=== PATIENT | female | born 2000 | race Native Hawaiian/Other Pacific Islander ===

== ENCOUNTER 2019-11-22 20:46 | Emergency (ER) | payer OTHER ==
--- NOTE | 2019-11-22 22:20 | ED ---
Complex/Multi-Sys Presentation - HPI Summary HPI Summary: Patient is a 19 y/o F w/ bilateral breast implants who presents to [facility] for opening of right breast incision. She speaks only limited Yoruba, friend in room assists with Serbian translation. Patient was weight lifting earlier today , 11/22/19, when opening of incision occurred. She notes that she had breast implant surgery in [facility] on October 15, 2019. After the opening occurred, patient notes onset of light-headedness, MATTSON, and nausea as well. She reports pain and drainage from both breasts. Drainage from right breast is from opened incision. She states that she has had a bump at her left breast since the surgery was done. Bump is reported to have been painful. Patient began to massage her left breast today and noted drainage from her nipple. On triage, pain is rated 5/10, movement is noted to aggravate Sx. Breast implants are reported to have been placed over muscle. She states that she had follow up with her surgeon two days after the surgery was done and no other follow-up since. Hx of liposuction is reported as well. Hx of anemia endorsed as well. Allergy to penicillin is noted. FMHx of cardiac disease and diabetes reported. Home medications and allergies are reviewed. - History Of Current Complaint Chief Complaint: EDBreastComplaint Time Seen by Provider: 11/22/19 21:54 Hx Obtained From: Patient, Other: - friend Onset/Duration: Lasting Hours, Still Present Timing: Hours Severity Currently: Moderate Location: Pain At: - breasts, head Aggravating Factor(s): movement Alleviating Factor(s): nothing Associated Signs And Symptoms: Positive: Dizziness - light-headedness, Headache , Nausea, Other - positive - breast pain and drainage bilaterally, left breast bump - Allergies/Home Medications Allergies/Adverse Reactions: Allergies Allergy/AdvReac Type Severity Reaction Status Date / Time Penicillins Allergy Swelling Verified 11/22/19 20:50 paracetomol Allergy Swelling Uncoded 11/22/19 20:50 Home Medications: Home Medications Multivitamin 1 tab PO DAILY 11/22/19 [History Confirmed 11/22/19] PMH/Surg Hx/FS Hx/Imm Hx Endocrine/Hematology History: Reports: Hx Anemia Sensory History: Denies: Hx Legally Blind, Hx Deafness Opthamlomology History: Denies: Hx Legally Blind EENT History: Denies: Hx Deafness - Surgical History Surgery Procedure, Year, and Place: bilateral breast implants Oct 15, 2019. liposuction Infectious Disease History: No Infectious Disease History: Denies: Traveled Outside the [place] in Last 30 Days - Family History Known Family History: Positive: Cardiac Disease, Diabetes - Social History Alcohol Use: Rare Substance Use Type: Reports: None Smoking Status (MU): Never Smoked Tobacco Review of Systems - ROS Summary Review of Systems Summary: Home Medications Medication Instructions Recorded Confirmed Type Cephalexin CAP* [Keflex CAP*] 500 mg PO TID #30 cap 11/22/19 Rx Multivitamin 1 tab PO DAILY 11/22/19 11/22/19 History Constitutional: Other - positive - right breast incision opening, left breast lump, bilateral drainage and pain Positive: Nausea Neurological: Other - positive - light-headedness Positive: Headache All Other Systems Reviewed And Are Negative: Yes Physical Exam - Summary Physical Exam Summary: General: Well-developed, Thin-appearing female. No acute distress. HEENT: Normocephalic, Atraumatic. Eyes: Conjuctiva normal, PERRL. Oropharynx: Clear, mucous membranes moist, (-) exudates. Neck: Soft, FROM, (-) lymphadenopathy, (-) thyromegaly, (-) JVD. Cardiovascular: Normal sinus rhythm, (-) murmur. Lungs: Clear to auscultation bilaterally (-) wheezes, (-) rales, (-) rhonchi. Abdomen: Soft, non-tender, non-distended, (-) organomegaly, normal bowel sounds. Back: (-) CVA tenderness Extremities: No edema. Skin: Right breast has a 3-4 mm separation of the medial right areola tissue, no obvious drainage noted. The left breast is with mild erythema, warmth, and tenderness surrounding the areola. No fluid was expressed. Warm, dry, (-) rash. Neuro: Alert and oriented x3, no focal deficits. Psychiatric: Mildly anxious appearing. Triage Information Reviewed: Yes Vital Signs On Initial Exam: Initial Vitals Temp Pulse Resp BP Pulse Ox 98.0 F 78 18 105/76 98 11/22/19 20:51 11/22/19 20:51 11/22/19 20:51 11/22/19 20:51 11/22/19 20:51 Vital Signs Reviewed: Yes Procedures - Sedation Patient Received Moderate/Deep Sedation with Procedure: No Diagnostics - Vital Signs Vital Signs Temp Pulse Resp BP Pulse Ox 11/22/19 21:21 77 124/74 99 11/22/19 21:20 83 100 11/22/19 20:51 98.0 F 78 18 105/76 98 - Laboratory Lab Statement: Any lab studies that have been ordered have been reviewed, and results considered in the medical decision making process. Complex Multi-Symp Course/Dx Course Of Treatment: During ED course, patient received Keflex 500 mg PO. - Diagnoses Provider Diagnoses: Complication of breast implant Discharge ED - Sign-Out/Discharge Documenting (check all that apply): Patient Departure - discharge - Discharge Plan Condition: Stable Disposition: HOME Prescriptions: Cephalexin CAP* [Keflex CAP*] 500 mg PO TID #30 cap Patient Education Materials: Breast Augmentation (DC) Print Language: BELARUSIAN Referrals: [facility] [Outside] - 3 Days Additional Instructions: PLEASE RETURN TO ED FOR ANY NEW OR CONCERNING SYMPTOMS. PLEASE FOLLOW UP WITH YOUR PRIMARY CARE PHYSICIAN WITHIN THREE DAYS. - Attestation Statements Document Initiated by Scribe: Yes Documenting Scribe: ERIBERTO SMALL Provider For Whom Scribe is Documenting (Include Credential): CYNDIE EM MD Scribe Attestation: ERIBERTO Coto, scribed for CYNDIE EM MD on 11/22/19 at 0865. Status of Scribe Document: Ready
[2019-11-22] MEDS ORDERED: Cephalexin CAP* 500 MG PO ONE (22:22)
[2019-11-22 22:58] VITALS: BP 101/69
== END 2019-11-22 22:55 | disposition home or self-care (01) ==
LOC: ED 20:46
DX: T85.49XA Other mechanical complication of breast prosthesis and implant, initial encounter (principal); R42 Dizziness and giddiness; R51 Headache; Z88.0 Allergy status to penicillin; Z79.899 Other long term (current) drug therapy
CPT/HCPCS: 99283; A9270-GY

== ENCOUNTER 2020-01-22 08:22 | Emergency (ER) | payer OTHER ==
--- OUTSIDE RECORDS SUMMARY | 2020-01-22 08:30 | XMS REPORT | Continuity of Care Document ---
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 Problems Active Problems Provider Date Anaphylactic reaction due to adverse Reed Leger MD Onset: 2019 effect of correct drug or medicament properly administered, subsequent encounter Allergy to other foods Reed Leger MD Onset: 12/24/2019 Uncomplicated moderate persistent asthma Reed Leger MD Onset: 03/2020 Allergic rhinitis Reed Leger MD Onset: 12/24/2019 Allergic rhinitis due to pollen Reed Leger MD Onset: 12/24/2019 Social History Type Date Description Comments Sex Unknown Tobacco Use Start: Unknown Patient has never smoked Tobacco Use Start: Unknown No Second Hand Smoke Exposure Smoking Status Reviewed: 12/24/19 No Second Hand Smoke Exposure Allergies, Adverse Reactions, Alerts Active Allergies Reaction Severity Comments Date Penicillin 12/24/2019 Medications Active Medications SIG Qnty Indications Ordering Provider Date Flonase Allergy 2 puffs each 9.900ml J30.1 Christopher A. 12/24/2019 Relief nostril every MD Arsen 50mcg/Act day Suspension Xyzal 1 tab by mouth 30tabs J30.1 Christophchloe A. 12/24/2019 5mg Tablets every day as MD Arsen needed Breo Ellipta inhale one puff 60units J30.1 Christophchloe A. 12/24/2019 once a day MD Arsen 200-25mcg/Inh Aerosol Proair HFA 2 puffs every 4 8.500gm J30.1 Northophchloe AUrban 12/24/2019 as needed MD Arsen 108(90Base) mcg/Act Aerosol Allergy Relief 1 tab as needed 30tabs R06.00 Trevor Kearns MD 12/04/2019 Loratadine for hives or 10mg allergy Tablets Albuterol Sulfate Take 1 puff 3 Unknown HFA Times A Day as 108(90Base) Needed Before mcg/Act Aerosol Exercise History Medications Albuterol Sulfate 1 puff before 75units R06.00 Trevor Kearns MD 12/04/2019 - exercise 12/24/2019 0.63mg/3ML Nebulizer Immunizations Description No Information Available Vital Signs Date Vital Result Comment 12/24/2019 3:10pm BP Systolic 111 mmHg BP Diastolic 68 mmHg Height 62.50 inches 5'2.50" Weight 98.38 lb BMI (Body Mass Index) 17.7 kg/m2 Heart Rate 67 /min Respiratory Rate 16 /min O2 % BldC Oximetry 98 % 12/04/2019 1:11pm BP Systolic 104 mmHg BP Diastolic 66 mmHg Weight 98.50 lb Heart Rate 85 /min Body Temperature 98.1 F O2 % BldC Oximetry 97 % Results Test Acquired Date Facility Test Result H/L Range Note Laboratory test 12/24/2019 [facility] <pending> finding Order 12/24/2019 [facility] Inhaler <pending> Training-Patient Demonstrates Competency Nitric Oxide <pending> PFT Supplies <pending> PFT With Bronchodilator <pending> Procedures Date Code Description Status 12/24/2019 75184 Nitric Oxide Gas Determination Completed 12/24/2019 40341 Demonstration/Eval,Of Patient Utilization Of Completed Aerosol,Nebulizer 12/24/2019 47829 Bronchodilation Responsiveness Spirometry Pre/Post Completed Bronchodil Adm Medical Devices Description No Information Available Encounters Description No Information Available Assessments Date Code Description Provider 12/24/2019 J30.1 Allergic rhinitis due to pollen Reed Leger MD 12/24/2019 J30.89 Other allergic rhinitis Reed Leger MD 12/24/2019 J45.40 Moderate persistent asthma, Reed Leger MD uncomplicated 12/24/2019 Z91.018 Allergy to other foods Reed Leger MD 12/24/2019 T88.6xxD Anaphylactic reaction due to adverse Reed Leger MD effect of correct drug or medicament properly administered, subsequent encounter Plan of Treatment 12/24/2019 - Reed Leger MDJ30.1 Allergic rhinitis due to pollenNew Medication:Flonase Allergy Relief 50 mcg/Act - 2 puffs each nostril every dayXyzal 5 mg - 1 tab by mouth every day as neededBreo Ellipta 200-25 mcg/Inh - inhale one puff once a dayProair HFA 108(90 Base) mcg/Act - 2 puffs every 4 as yzvfzoW73.89 Other allergic zldhpyadO06.40 Moderate persistent asthma, oedymymmkwkqrR15.018 Allergy to other cafuiB97.6xxD Anaphylactic reaction due to adverse effect of correct drug or medicament properly administered, subsequent encounter Functional Status Description No Information Available Mental Status Description No Information Available Referrals Description No Information Available
--- OUTSIDE RECORDS SUMMARY | 2020-01-22 08:30 | XMS REPORT | Continuity of Care Document ---
:1999 External Reference #:[id number] Author Name Juliet Pimentel MD (transmitted by agent of provider Kelly Turcios) Address [address] [place] [address] Care Team Providers Name Role Phone Juleit Pimentel MD - Student in an Care Team Information Laundry Aid [phone] Organized Health Care Education/Training Program Problems Description No Information Available Social History Type Date Description Comments Sex Unknown Tobacco Use Start: Unknown Never Smoked Cigarettes Smoking Status Reviewed: 12/04/19 Never Smoked Cigarettes ETOH Use Denies alcohol use Tobacco Use Start: Unknown Patient has never smoked Allergies, Adverse Reactions, Alerts Description No Information Available Medications Active Medications SIG Qnty Indications Ordering Provider Date Albuterol Sulfate 1 puff before 75ml R06.00 Trevor Kearns MD 12/04/2019 exercise 0.63mg/3ML Nebulizer Cephalexin 1 capsule 3 times Unknown 500mg a day Capsules Ensure High Protein 2 bottles daily Unknown Liquid Immunizations Description No Information Available Vital Signs Date Vital Result Comment 12/04/2019 1:11pm Weight 98.50 lb Heart Rate 85 /min BP Systolic 104 mmHg BP Diastolic 66 mmHg Body Temperature 98.1 F O2 % BldC Oximetry 97 % Results Description No Information Available Procedures Description No Information Available Medical Devices Description No Information Available Encounters Description No Information Available Assessments Date Code Description Provider 12/04/2019 N61.0 Mastitis without abscess Juliet Pimentel MD 12/04/2019 Z98.82 Breast implant status Juliet Pimentel MD 12/04/2019 G43.009 Migraine without aura, not intractable, without Juliet Pimentel MD status migrainosus 12/04/2019 T78.40xA Allergy, unspecified, initial encounter Juliet Pimentel MD 12/04/2019 D64.9 Anemia, unspecified Juliet Pimentel MD 12/04/2019 M41.9 Scoliosis, unspecified Juliet Pimentel MD 12/04/2019 R06.00 Dyspnea, unspecified Juliet Pimentel MD Plan of Treatment Future Appointment(s):01/06/2020 4:00 pm - Juliet Pimentel MD at [facility] - [address]/04/2019 - Juliet Pimentel MDN61.0 Mastitis without abscessComments:Your breast wound is healing with antibiotics. Let us know if it 's persistently swollen or painful. I will refer you to a plastic surgeon in [place] who can accept your insurance for follow up.Follow up:Follow up in 1month.Z98.82 Breast implant jgbqmnF60.009 Migraine without aura, not intractable, without status migrainosusComments:Ibuprofen will be helpful for your headache. Limit the amount of ibuprofen you are taking as this could cause stomache ulcer and bleeding. Let us know if your headache is getting worse.T78.40xA Allergy, unspecified, initial encounterComments:I will refer you to an medical director for allergen test.Referral:Reed Leger MD, Allergy &amp ; AxdhhjuzhdN53.9 Anemia, unspecifiedComments:I will repeat your Hb.M41.9 Scoliosis, unspecifiedComments:No intervention needed for mild scoliosis. Monitor.R06.00 Dyspnea, unspecifiedNew Medication:Albuterol Sulfate 0.63 mg/3ML - 1 puff before exerciseComments:There are many causes for shortness of breath during your exercise. I highly suspect this could be related to your allergy condition, like exercise induced asthma. We will trial inhaler before exercise first. At the meantime we will arrange you to see an medical director. Try loratidine over the counter forallergyapply steroid cream to hives. Functional Status Description No Information Available Mental Status Description No Information Available Referrals Refer to Reason for Referral Status Appt Date Reed Leger MD Mutiple allergy with urticaria and possible Created exercise induced asthma, would like allergy test. [address] [facility] [place] [address] [place] [address] [phone]
--- OUTSIDE RECORDS SUMMARY | 2020-01-22 08:30 | XMS REPORT | Continuity of Care Document ---
:1999 External Reference #:[id number] Author Name Juliet Pimentel MD (transmitted by agent of provider Tomasa Hernández) Address [address] [place] [address] Care Team Providers Name Role Phone Juliet Pimentel MD - Student in an Care Team Information Film Composer [phone] Organized Health Care Education/Training Program Problems Description No Information Available Social History Type Date Description Comments Sex Unknown Tobacco Use Start: Unknown Never Smoked Cigarettes Smoking Status Reviewed: 01/06/20 Never Smoked Cigarettes ETOH Use Denies alcohol use Tobacco Use Start: Unknown Patient has never smoked Recreational Drug Use Denies Drug Use Allergies, Adverse Reactions, Alerts Description No Known Drug Allergies Medications Active Medications SIG Qnty Indications Ordering Provider Date Ventolin HFA 1 puff three 8gm Vidhya Abernathy MD 12/09/2019 times per day as 108(90Base) mcg/Act needed before Aerosol exercise Allergy Relief 1 tab daily as 30tabs R06.00 Trevor Kearns MD 12/04/2019 Loratadine needed for hives 10mg Tablets or allergy Ensure High Protein 2 bottles daily Unknown Liquid History Medications Albuterol Sulfate 1 puff three times 75ml R06.00 Trevor Kearns MD 12/04/2019 - a day as needed 12/09/2019 0.63mg/3ML Nebulizer before exercise Immunizations CPT Code Status Date Vaccine Lot # [id number] Given 01/06/2020 Influenza Virus Vaccine, Quadrivalent, Split, [id number] Preservative Free 75507 Given 01/06/2020 Gardasil (HPV) [id number] Vital Signs Date Vital Result Comment 01/06/2020 3:44pm Weight 94.00 lb Heart Rate 91 /min BP Systolic Sitting 95 mmHg BP Diastolic Sitting 62 mmHg Body Temperature 98.4 F O2 % BldC Oximetry 98 % 12/04/2019 1:11pm Weight 98.50 lb Heart Rate 85 /min BP Systolic 104 mmHg BP Diastolic 66 mmHg Body Temperature 98.1 F O2 % BldC Oximetry 97 % Results Test Acquired Date Facility Test Result H/L Range Note CBC Auto 12/05/2019 [facility] White Blood 5.2 10^3/uL Normal 3.5-10.[address] [place] [address] [phone] Red Blood Count 4.43 10^6/uL Normal 3.70-4.87 Hemoglobin 12.8 g/dL Normal 12.0-16.0 Hematocrit 39 % Normal 35-47 Mean Corpuscular Volume 87 fL Normal 80-97 Mean Corpuscular Hemoglobin 29 pg Normal 27-31 Mean Corpuscular HGB Conc 33 g/dL Normal 31-36 Red Cell Distribution Width 15 % Normal 10-15 Platelet Count 246 10^3/uL Normal 150-450 Mean Platelet Volume 7.5 fL Normal 7.4-10.4 Abs Neutrophils 2.4 10^3/uL Normal 1.5-7.7 Abs Lymphocytes 2.1 10^3/uL Normal 1.0-4.8 Abs Monocytes 0.4 10^3/uL Normal 0-0.8 Abs Eosinophils 0.2 10^3/uL Normal 0-0.6 Abs Basophils 0.0 10^3/uL Normal 0-0.2 Abs Nucleated RBC 0.0 10^3/uL Granulocyte % 47.4 % Lymphocyte % 40.8 % Monocyte % 7.8 % Eosinophil % 3.5 % Basophil % 0.5 % Nucleated Red Blood Cells % 0.0 Iron & Iron Binding 12/05/2019 [facility] Iron 112 g/dL Normal 50-[address] [place] [address] [phone] Unsaturated Iron Binding < 376 g/dL Total Iron Binding Capacity 391 g/dL Normal 250-450 Transferrin 279 mg/dL Normal 203-362 % Iron Saturation 29 % Normal 15-55 Laboratory test 12/05/2019 [facility] Ferritin 24.4 ng/mL Normal 11-[address] [place] [address] [phone] TSH (Thyroid Stim Horm) 1.23 mcIU/mL Normal 0.34-5.60 Procedures Description No Information Available Medical Devices Description No Information Available Encounters Description No Information Available Assessments Date Code Description Provider 01/06/2020 J45.909 Unspecified asthma, uncomplicated Juliet Pimentel MD 01/06/2020 N94.4 Primary dysmenorrhea Juliet Pimentel MD 01/06/2020 M41.9 Scoliosis, unspecified Juliet Pimentel MD 01/06/2020 G43.009 Migraine without aura, not intractable, without Juliet Pimentel MD status migrainosus 01/06/2020 N61.0 Mastitis without abscess Juliet Pimentel MD 01/06/2020 Z23 Encounter for immunization Juliet Pimentel MD 12/04/2019 N61.0 Mastitis without abscess Juliet Pimentel MD 12/04/2019 Z98.82 Breast implant status Juliet Pimentel MD 12/04/2019 G43.009 Migraine without aura, not intractable, without Juliet Pimentel MD status migrainosus 12/04/2019 T78.40xA Allergy, unspecified, initial encounter Juliet Pimentel MD 12/04/2019 D64.9 Anemia, unspecified Juliet Pimentel MD 12/04/2019 M41.9 Scoliosis, unspecified Juliet Pimentel MD 12/04/2019 R06.00 Dyspnea, unspecified Juliet Pimentel MD Plan of Treatment Future Appointment(s):07/06/2020 3:00 pm - Virginie León DO at [facility] - [address]/05/2020 3:00 pm - Nurse Visit Noah at [facility] - [address]/06/2020 - Juliet Pimentel MDJ45.909 Unspecified asthma, uncomplicatedComments:Continue to follow up Dr. Leger.Follow up:F/U in 6 jwrpytV84.4 Primary dysmenorrheaComments:Try oral contraceptive first.M41.9 Scoliosis, unspecifiedNew Therapy:Physical MsbwdvuG17.009 Migraine without aura , not intractable, without status migrainosusComments:Resolved.N61.0 Mastitis without abscessComments:Resolved.Z23 Encounter for immunizationFollow up: Schedule nurse visit in 2 months, 6 months to complete HPV vaccine. Functional Status Description No Information Available Mental Status Description No Information Available Referrals Refer to Dr Reason for Referral Status Appt Date Reed Leger MD Mutiple allergy with urticaria Received Complete and possible exercise induced asthma, would like allergy test. [address] [place] [address] [place] [address] [phone] Jefe Roth MD Breast implant done 1.5months ago, still Sent nonhealing wound with drainage Referral office called stating they are declining referral due to the pt having a different previous surgeon 12/[address] [place] [address] [phone]
[2020-01-22 08:32] VITALS: BP 93/61
[2020-01-22 09:17] LABS: Influenza A Molecular Negative (Negative); Influenza B Molecular Negative (Negative)
--- NOTE | 2020-01-22 09:44 | UC ---
Throat Pain/Nasal Satish HPI - HPI Summary HPI Summary: 19-year-old female comes in with chief complaint of influenza-like illness for 24 hours. She is fever chills bodyaches sore throat. Does have some rhinorrhea. She is tried odfs-vys-shykpfk medicines which to help some with the symptoms. Throat hurts worse when she swallows. - History of Current Complaint Chief Complaint: UCGeneralIllness Stated Complaint: SORE THROAT Time Seen by Provider: 01/22/20 09:33 Hx Last Menstrual Period: 01/20/19 Pain Intensity: 8 - Allergies/Home Medications Allergies/Adverse Reactions: Allergies Allergy/AdvReac Type Severity Reaction Status Date / Time Penicillins Allergy Swelling Verified 01/22/20 08:32 paracetomol Allergy Swelling Uncoded 01/22/20 08:32 Home Medications: Home Medications Multivitamin 1 tab PO DAILY 11/22/19 [History Confirmed 01/22/20] Azithromyxin LAURIE (NF) [Z-Laurie (Zithromax) 250 mg tabs #6] 2 tab PO .TODAY, THEN 1 DAILY #6 tab 01/22/20 [Rx] PMH/Surg Hx/FS Hx/Imm Hx Previously Healthy: Yes - Surgical History Surgical History: Yes Surgery Procedure, Year, and Place: bilateral breast implants Oct 15, 2019. liposuction - Family History Known Family History: Positive: Cardiac Disease, Diabetes - Social History Alcohol Use: None Substance Use Type: None Smoking Status (MU): Never Smoked Tobacco Review of Systems All Other Systems Reviewed And Are Negative: Yes Constitutional: Positive: Fever, Chills, Other - SEE HPI Skin: Positive: Negative Eyes: Positive: Negative ENT: Positive: Sore Throat, Nasal Discharge, Sinus Congestion Respiratory: Positive: Negative Cardiovascular: Positive: Negative Gastrointestinal: Positive: Negative Motor: Positive: Negative Neurovascular: Positive: Negative Musculoskeletal: Positive: Myalgia Neurological/Mental Status: Positive: Headache Psychological: Positive: Negative Is Patient Immunocompromised?: No Physical Exam Triage Information Reviewed: Yes Appearance: No Pain Distress, Well-Nourished, Ill-Appearing - MILD Vital Signs: Initial Vital Signs Temp 98.8 F 01/22/20 08:29 Pulse 55 01/22/20 08:29 Resp 16 01/22/20 08:29 BP 93/61 01/22/20 08:29 Pulse Ox 100 01/22/20 08:29 Vital Signs Reviewed: Yes Eye Exam: Normal Eyes: Positive: Conjunctiva Clear ENT: Positive: Pharyngeal erythema, Nasal congestion, Nasal drainage, TMs normal Neck: Positive: Supple Respiratory: Positive: Lungs clear, Normal breath sounds, No respiratory distress Cardiovascular: Positive: RRR Musculoskeletal: Positive: Strength Intact, ROM Intact Neurological: Positive: Alert, Muscle Tone Normal Psychological: Positive: Normal Response To Family, Age Appropriate Behavior Skin Exam: Normal Throat Pain/Nasal Course/Dx - Course Course Of Treatment: DISCUSSED VIRAL VERSES BACTERIAL INFECTIONS AND THE ROLE OF ANTIBIOTICS. PATIENT PREFERS TO BE ON ANTIBIOTICS AT THIS TIME. - Differential Dx/Diagnosis Provider Diagnosis: Pharyngitis, Influenza-like illness Discharge ED - Sign-Out/Discharge Documenting (check all that apply): Patient Departure All imaging exams completed and their final reports reviewed: No Studies - Discharge Plan Condition: Stable Disposition: HOME Prescriptions: Azithromyxin LAURIE (NF) [Z-Laurie (Zithromax) 250 mg tabs #6] 2 tab PO .TODAY, THEN 1 DAILY #6 tab Patient Education Materials: Pharyngitis (ED) Forms: *Work Release Referrals: Juliet Pimentel MD [Primary Care Provider] - Additional Instructions: FOLLOW UP WITH YOUR DOCTOR IF NOT COMPLETELY IMPROVED. GET REEVALUATED SOONER IF NOT IMPROVED OR WORSE OR ANY QUESTIONS OR CONCERNS. - Billing Disposition and Condition Condition: STABLE Disposition: Home
== END 2020-01-22 09:52 | disposition home or self-care (01) ==
LOC: UCEAST 08:22
DX: J02.9 Acute pharyngitis, unspecified (principal); R09.81 Nasal congestion; R09.89 Other specified symptoms and signs involving the circulatory and respiratory systems; R51 Headache; R68.83 Chills (without fever); M79.10 Myalgia, unspecified site; Z88.0 Allergy status to penicillin; Z88.8 Allergy status to other drugs, medicaments and biological substances
CPT/HCPCS: 87651; 99212; G0463